=== PATIENT | female | born 1995 | race Caucasian/White ===

== ENCOUNTER → 2019-11-26 | Outpatient (REF) | payer OTHER ==
[2019-11-26 16:38] LABS: BASO # 0.1 10^3/uL (0.0-0.2); BASO % 0.6 % (0.0-1.0); EOS # 0.3 10^3/uL (0.0-0.5); EOS % 2.6 % (0.0-3.0); HEMOGLOBIN 14.2 g/dl (12.0-15.5); LYMPH # 3.9 10^3/uL (1.5-5.0); LYMPH % 30.1 % (24.0-44.0); MEAN CORPUSCULAR HEMOGLOBIN 28.6 pg (27.0-33.0); MEAN CORPUSCULAR HGB CONC 32.3 g/dl (32.0-36.5); MEAN CORPUSCULAR VOLUME 88.7 fl (80.0-96.0); MONO # 0.7 10^3/uL (0.0-0.8); MONO % 5.4 % (0.0-5.0); NEUTROPHILS # 7.8 10^3/uL (1.5-8.5); NEUTROPHILS % 60.3 % (36.0-66.0); PLATELET COUNT, AUTOMATED 398 10^3/uL (150-450); RED BLOOD COUNT 4.96 10^6/uL (4.00-5.40); WHITE BLOOD COUNT 12.9 10^3/uL (4.0-10.0)
[2019-11-26 16:50] LABS: ALT/SGPT 39 U/L (12-78); BILIRUBIN,TOTAL 0.4 MG/DL (0.2-1.0); BLOOD UREA NITROGEN 10 MG/DL (7-18); CALCIUM LEVEL 9.2 MG/DL (8.5-10.1); CARBON DIOXIDE LEVEL 27 MEQ/L (21-32); CHLORIDE LEVEL 105 MEQ/L (98-107); CREATININE FOR GFR 0.65 MG/DL (0.55-1.30); FREE T4 1.03 NG/DL (0.76-1.46); GLOMERULAR FILTRATION RATE > 60.0 (>60); GLUCOSE, FASTING 72 MG/DL (70-100); POTASSIUM SERUM 4.2 MEQ/L (3.5-5.1); SODIUM LEVEL 138 MEQ/L (136-145); TOTAL PROTEIN 7.3 GM/DL (6.4-8.2)
== END ==
LOC: M SFHCLERA 11:40
PROVIDERS: ATTEND Nurse Practitioner Family
DX: R63.5 Abnormal weight gain (principal)

== ENCOUNTER 2020-07-12 09:00 | Emergency (ER) | payer OTHER ==
[~2020-07-12] VITALS: Ht 165.1 cm; Wt 123.6 kg
[2020-07-12] MEDS ORDERED: LIDOCAINE 2% MDV 20ML VIAL SC ONE (09:45)
[2020-07-12 10:20] VITALS: BP 140/77
== END 2020-07-12 10:22 | disposition home or self-care (01) ==
LOC: M ED 09:00
DX: S61.412A Laceration without foreign body of left hand, initial encounter (principal); W31.1XXA Contact with metalworking machines, initial encounter; Y92.89 Other specified places as the place of occurrence of the external cause; Y93.89 Activity, other specified; Y99.0 Civilian activity done for income or pay; Z87.891 Personal history of nicotine dependence

== ENCOUNTER 2020-07-19 13:51 | Emergency (ER) | payer OTHER ==
[~2020-07-19] VITALS: Ht 165.1 cm; Wt 124.9 kg
[2020-07-19] MEDS ORDERED: BACITRACIN OINTMENT 30GM TUBE TOP ONE (14:45)
[2020-07-19] MEDS ORDERED: AUGM875T28 PO (14:58)
[2020-07-19 15:10] VITALS: BP 141/98
== END 2020-07-19 15:30 | disposition home or self-care (01) ==
LOC: M ED 13:51
DX: Z48.02 Encounter for removal of sutures (principal); L08.9 Local infection of the skin and subcutaneous tissue, unspecified

== ENCOUNTER → 2020-11-08 | Outpatient (CLI) | payer OTHER ==
[~2020-11-08] MED LIST: AUGM875T28 PO
--- NOTE | 2020-11-09 08:38 | REP ---
INDICATION: IRREGULAR MENSES COMPARISON: None. TECHNIQUE: Transabdominal pelvic ultrasound with color Doppler evaluation of the ovaries. FINDINGS: Bladder is unremarkable and measures 12.4 x 9.3 x 7.9 cm. Normal anteverted uterus measures 7.7 x 3.9 x 6.0 cm. The endometrial complex measures 8.8 mm thickness. No discrete uterine or endometrial abnormalities are appreciated. Bilateral ovaries are normal in appearance and vascularity without evidence for torsion. Right ovary measures 3.4 x 1.7 x 1.9 cm; R I = 0.67. Left ovary measures 3.9 x 2.1 x 1.9 cm; R I = 0.55. No pelvic fluid or adnexal mass lesion IMPRESSION: Normal pelvic ultrasound. <Electronically signed by Baltazar Cooper > 11/09/20 [id number]
== END ==
LOC: M RAD 12:21
PROVIDERS: ATTEND Nurse Practitioner Family
DX: N92.6 Irregular menstruation, unspecified (principal)

== ENCOUNTER → 2021-01-11 | Outpatient (REF) | payer OTHER ==
[2021-01-11 18:00] LABS: BASO # 0.1 10^3/uL (0.0-0.2); BASO % 0.5 % (0.0-1.0); EOS # 0.5 10^3/uL (0.0-0.5); EOS % 3.3 % (0.0-3.0); HEMATOCRIT 41.9 % (36.0-47.0); HEMOGLOBIN 13.3 g/dl (12.0-15.5); LYMPH % 29.9 % (24.0-44.0); MEAN CORPUSCULAR HEMOGLOBIN 27.7 pg (27.0-33.0); MEAN CORPUSCULAR HGB CONC 31.7 g/dl (32.0-36.5); MEAN CORPUSCULAR VOLUME 87.1 fl (80.0-96.0); MONO # 0.8 10^3/uL (0.0-0.8); MONO % 5.8 % (2.0-8.0); NEUTROPHILS # 8.1 10^3/uL (1.5-8.5); PLATELET COUNT, AUTOMATED 405 10^3/uL (150-450); RED BLOOD COUNT 4.81 10^6/uL (4.00-5.40); WHITE BLOOD COUNT 13.5 10^3/uL (4.0-10.0)
[2021-01-11 18:45] LABS: HCG, SERUM QUALITATIVE NEGATIVE (NEGATIVE)
[2021-01-11 18:46] LABS: ALBUMIN 3.7 GM/DL (3.2-5.2); ALT/SGPT 38 U/L (12-78); BILIRUBIN,TOTAL 0.3 MG/DL (0.2-1.0); BLOOD UREA NITROGEN 14 MG/DL (7-18); CALCIUM LEVEL 9.3 MG/DL (8.5-10.1); CARBON DIOXIDE LEVEL 26 MEQ/L (21-32); CHLORIDE LEVEL 104 MEQ/L (98-107); CREATININE FOR GFR 0.92 MG/DL (0.55-1.30); FOLLICLE STIMULATING HORMONE 7.4 mIU/mL; FREE T4 1.01 NG/DL (0.76-1.46); GLOMERULAR FILTRATION RATE > 60.0 (>60); GLUCOSE, FASTING 74 MG/DL (70-100); POTASSIUM SERUM 4.3 MEQ/L (3.5-5.1); PROLACTIN 8.3 NG/ML; SODIUM LEVEL 138 MEQ/L (136-145); TOTAL PROTEIN 6.9 GM/DL (6.4-8.2)
[2021-01-13 18:11] LABS: TESTOSTERONE FREE (DIRECT) 1.8 pg/mL (0.0-4.2)
[2021-01-14 14:39] LABS: CHLAMYDIA DNA AMPLIFICATION NEGATIVE (NEGATIVE); GC DNA AMPLIFICATION NEGATIVE (NEGATIVE)
== END ==
LOC: M PLALAB 14:58
PROVIDERS: ATTEND Nurse Practitioner Women's Health
DX: N93.9 Abnormal uterine and vaginal bleeding, unspecified (principal); N92.6 Irregular menstruation, unspecified

== ENCOUNTER 2021-07-03 13:23 | Emergency (ER) | payer OTHER ==
[~2021-07-03] VITALS: Ht 165.1 cm; Wt 116.2 kg
[2021-07-03 14:35] LABS: HEMATOCRIT 38.3 % (36.0-47.0); HEMOGLOBIN 12.5 g/dl (12.0-15.5); MEAN CORPUSCULAR HEMOGLOBIN 27.8 pg (27.0-33.0); MEAN CORPUSCULAR HGB CONC 32.6 g/dl (32.0-36.5); MEAN CORPUSCULAR VOLUME 85.3 fl (80.0-96.0); PLATELET COUNT, AUTOMATED 374 10^3/uL (150-450); RED BLOOD COUNT 4.49 10^6/uL (4.00-5.40); WHITE BLOOD COUNT 15.2 10^3/uL (4.0-10.0)
[2021-07-03 15:00] LABS: ATYPICAL LYMPH 2 % (0-5); EOSINOPHILS 1 % (0-3); LYMPHOCYTES 25 % (16-44); MONOCYTES 3 % (0-5); NEUTROPHILS 69 % (28-66); PLATELET ESTIMATE NORMAL (NORMAL)
[2021-07-03] MEDS ORDERED: KETOROLAC 60MG 2ML VIAL IM ONE (16:00)
[2021-07-03] MEDS ORDERED: ONDANSETRON 4 MG ORAL DISINTEGRATING TAB PO ONE (16:00)
--- NOTE | 2021-07-03 16:43 | REP ---
INDICATION: heavy vaginal bleeding, pelvic cramping. COMPARISON: 11/08/2020 TECHNIQUE: Transvesical and transvaginal scanning FINDINGS: The uterus measures 7.9 x 4.1 x 6.3 cm. The parenchymal echo pattern is within normal limits. The endometrial echo complex is unremarkable appearing measuring 3 mm in its greatest thickness. The right ovary measures 2.5 x 2.4 x 1.8 cm and is within normal limits with an RI 0.72. The left ovary measures 1.8 x 2.1 x 1.5 cm and is within normal limits with an RI 0.75. There is no free fluid in the cul-de-sac IMPRESSION: Pelvic ultrasonography is within normal limits. <Electronically signed by Francisco Javier Max > 07/03/21 [id number]
[2021-07-03 17:16] VITALS: BP 117/68
== END 2021-07-03 17:19 | disposition home or self-care (01) ==
LOC: M ED 13:23
DX: N92.0 Excessive and frequent menstruation with regular cycle (principal)
CPT/HCPCS: 36415; 76830; 76856; 84702; 85025; 86850; 86900; 86901; 93976; 96372; 99284; J1885; Q0162

== ENCOUNTER 2022-03-28 11:04 | Emergency (ER) | payer OTHER ==
[~2022-03-28] VITALS: Ht 165.1 cm; Wt 118.1 kg
[2022-03-28] MEDS ORDERED: IPRATROPIUM 0.5MG/ALBUTEROL 2.5MG INH SOL UD 3ML (DUONEB) NEB ONE (11:10)
[2022-03-28 11:38] LABS: VENOUS BASE EXCESS -1.3 (-2.0-2.0); VENOUS HCO3 20.5 MEQ/L (23.0-27.0); VENOUS O2 SATURATION 98.3 % (60.0-80.0); VENOUS PARTIAL PRESSURE CO2 27.4 mmHg (38.0-50.0); VENOUS PARTIAL PRESSURE O2 105.3 mmHg (30.0-50.0); VENOUS PH 7.492 UNITS (7.330-7.430); VENOUS STANDARD HCO3 23.4 MEQ/L; VENOUS TOTAL CO2 21.3 MEQ/L (24.0-28.0)
[2022-03-28] MEDS ORDERED: ALBU8.5H INH (11:43)
[2022-03-28 11:45] LABS: HEMATOCRIT 41.4 % (36.0-47.0); HEMOGLOBIN 13.9 g/dl (12.0-15.5); MEAN CORPUSCULAR HEMOGLOBIN 28.9 pg (27.0-33.0); MEAN CORPUSCULAR HGB CONC 33.6 g/dl (32.0-36.5); MEAN CORPUSCULAR VOLUME 86.1 fl (80.0-96.0); PLATELET COUNT, AUTOMATED 415 10^3/uL (150-450); RED BLOOD COUNT 4.81 10^6/uL (4.00-5.40); WHITE BLOOD COUNT 18.6 10^3/uL (4.0-10.0)
[2022-03-28 12:11] LABS: ATYPICAL LYMPH 2 % (0-5); EOSINOPHILS 9 % (0-3); LYMPHOCYTES 33 % (16-44); MONOCYTES 8 % (0-5); NEUTROPHILS 48 % (28-66); PLATELET ESTIMATE NORMAL (NORMAL)
[2022-03-28 12:13] LABS: ALBUMIN 3.7 GM/DL (3.2-5.2); ALT/SGPT 26 U/L (12-78); BILIRUBIN,DIRECT < 0.1 MG/DL (0.0-0.2); BILIRUBIN,TOTAL 0.3 MG/DL (0.2-1.0); BLOOD UREA NITROGEN 8 MG/DL (7-18); CALCIUM LEVEL 9.7 MG/DL (8.5-10.1); CARBON DIOXIDE LEVEL 18 MEQ/L (21-32); CHLORIDE LEVEL 110 MEQ/L (98-107); GLOMERULAR FILTRATION RATE > 60.0 (>60); GLUCOSE, FASTING 98 MG/DL (70-100); POTASSIUM SERUM 3.7 MEQ/L (3.5-5.1); SODIUM LEVEL 141 MEQ/L (136-145)
[2022-03-28] MEDS ORDERED: NS 1,000 ML IV ONE (12:20)
[2022-03-28 15:15] VITALS: BP 119/61
[2022-03-28] MEDS ORDERED: PRED20TA PO (15:16)
== END 2022-03-28 15:20 | disposition home or self-care (01) ==
LOC: EDBD 11:04 → M ED 11:04
DX: J45.901 Unspecified asthma with (acute) exacerbation (principal); R00.0 Tachycardia, unspecified; Z79.51 Long term (current) use of inhaled steroids

== ENCOUNTER 2022-09-19 16:40 | Emergency (ER) | payer OTHER ==
[~2022-09-19] VITALS: Ht 165.1 cm; Wt 122.7 kg
[~2022-09-19 16:40] MED LIST changes: +ALBU8.5H INH; +PRED20TA PO
[2022-09-19 18:25] LABS: APPEARANCE, URINE MANUAL CLOUDY (CLEAR); BASO # 0.1 10^3/uL (0.0-0.2); BASO % 0.4 % (0.0-1.0); COLOR, URINE MANUAL AMBER (YELLOW); EOS # 0.5 10^3/uL (0.0-0.5); EOS % 3.3 % (0.0-3.0); HEMOGLOBIN 12.7 g/dl (12.0-15.5); LYMPH # 4.4 10^3/uL (1.5-5.0); LYMPH % 31.6 % (24.0-44.0); MEAN CORPUSCULAR HEMOGLOBIN 28.3 pg (27.0-33.0); MEAN CORPUSCULAR HGB CONC 31.8 g/dl (32.0-36.5); MEAN CORPUSCULAR VOLUME 89.3 fl (80.0-96.0); MONO % 7.3 % (2.0-8.0); NEUTROPHILS # 7.9 10^3/uL (1.5-8.5); NEUTROPHILS % 56.7 % (36.0-66.0); PH,URINE MAN 5.5 UNITS (5.0 - 7.0); PLATELET COUNT, AUTOMATED 373 10^3/uL (150-450); RED BLOOD COUNT 4.48 10^6/uL (4.00-5.40)
[2022-09-19 18:26] LABS: BILIRUBIN, URINE MANUAL NEGATIVE (NEGATIVE); BLOOD URINE MANUAL POSITIVE (NEGATIVE); GLUCOSE, URINE (UA) MANUAL NEGATIVE (NEGATIVE); KETONE, URINE MANUAL NEGATIVE (NEGATIVE); LEUKOCYTE ESTERASE, URINE MAN TRACE (NEGATIVE); NITRITE, URINE MANUAL NEGATIVE (NEGATIVE); PROTEIN, URINE MANUAL 1+ mg/dL (NEGATIVE); UROBILINOGEN, URINE MANUAL NORMAL (NORMAL)
[2022-09-19 18:41] LABS: BACTERIA, URINE SMALL AMOUNT; RBC, URINE TNTC /hpf (0-3); SQUAMOUS EPITHELIAL CELL URINE SMALL AMOUNT /hpf (SMALL AMT)
[2022-09-19 18:42] LABS: HYALINE CAST, URINE NONE SEEN /lpf (0-1)
[2022-09-19 18:53] LABS: BLOOD UREA NITROGEN 11 MG/DL (9-23); CALCIUM LEVEL 9.3 MG/DL (8.5-10.1); CARBON DIOXIDE LEVEL 28 MMOL/L (20-31); CHLORIDE LEVEL 105 MMOL/L (98-107); CREATININE FOR GFR 0.72 MG/DL (0.55-1.30); GLOMERULAR FILTRATION RATE > 60.0 (>60); GLUCOSE, FASTING 75 MG/DL (60-100); POTASSIUM SERUM 4.2 MMOL/L (3.5-5.1); SODIUM LEVEL 139 MMOL/L (136-145)
[2022-09-19 19:59] VITALS: BP 126/78
== END 2022-09-19 20:14 | disposition home or self-care (01) ==
LOC: M ED 16:40
DX: N93.8 Other specified abnormal uterine and vaginal bleeding (principal); J30.2 Other seasonal allergic rhinitis

== ENCOUNTER → 2022-09-20 | Outpatient (CLI) | payer OTHER | LOC: M WHC 11:18 | PROVIDERS: ATTEND Physician Assistant Medical | DX: N92.6 Irregular menstruation, unspecified (principal) ==

== ENCOUNTER → 2022-10-16 | Outpatient (REF) | payer OTHER ==
[2022-10-16 17:33] LABS: GC DNA AMPLIFICATION NEGATIVE (NEGATIVE)
== END ==
LOC: M SFHCWAGY 13:22
PROVIDERS: ATTEND Obstetrics & Gynecology
DX: Z11.3 Encounter for screening for infections with a predominantly sexual mode of transmission (principal); Z12.4 Encounter for screening for malignant neoplasm of cervix; Z01.419 Encounter for gynecological examination (general) (routine) without abnormal findings; Z77.9 Other contact with and (suspected) exposures hazardous to health

== ENCOUNTER 2023-01-16 16:59 | Emergency (ER) | payer OTHER ==
[~2023-01-16] VITALS: Ht 165.1 cm; Wt 126.8 kg
[2023-01-16] MEDS ORDERED: ONDANSETRON 4MG 2ML VIAL IV ONE (18:40)
[2023-01-16] MEDS ORDERED: MORPHINE 4 MG/ML 1ML VIAL IV ONE ×2 (18:40→21:20)
[2023-01-16 19:03] LABS: BASO # 0.1 10^3/uL (0.0-0.2); BASO % 0.4 % (0.0-1.0); EOS # 0.2 10^3/uL (0.0-0.5); EOS % 0.8 % (0.0-3.0); HEMATOCRIT 40.7 % (36.0-47.0); HEMOGLOBIN 13.2 g/dl (12.0-15.5); LYMPH # 4.4 10^3/uL (1.5-5.0); MEAN CORPUSCULAR HEMOGLOBIN 28.8 pg (27.0-33.0); MEAN CORPUSCULAR HGB CONC 32.4 g/dl (32.0-36.5); MEAN CORPUSCULAR VOLUME 88.9 fl (80.0-96.0); MONO # 1.1 10^3/uL (0.0-0.8); NEUTROPHILS # 16.1 10^3/uL (1.5-8.5); NEUTROPHILS % 72.8 % (36.0-66.0); PLATELET COUNT, AUTOMATED 403 10^3/uL (150-450); RED BLOOD COUNT 4.58 10^6/uL (4.00-5.40)
[2023-01-16 19:18] LABS: INR 1.01; PROTHROMBIN TIME 13.5 SECONDS (12.5-14.5)
[2023-01-16 19:19] LABS: PARTIAL THROMBOPLASTIN TIME 22.4 SECONDS (24.8-34.2)
[2023-01-16] MEDS ORDERED: ISOVUE-370 76% 100ML VIAL As Ordered ONE (19:26)
[2023-01-16 19:35] LABS: LIPASE 26 U/L (12-53)
[2023-01-16 19:37] LABS: ALBUMIN 3.8 G/DL (3.2-5.2); ALKALINE PHOSPHATASE 68 U/L (46-116); ALT/SGPT 57 U/L (7.0-40); AST/SGOT 37 U/L (<34); BILIRUBIN,DIRECT < 0.1 MG/DL (<0.4); BILIRUBIN,TOTAL 0.3 MG/DL (0.3-1.2)
[2023-01-16] MEDS ORDERED: PERC5TAB12 PO (21:21)
[2023-01-16 21:49] VITALS: BP 117/82
== END 2023-01-16 22:00 | disposition home or self-care (01) ==
LOC: M ED 16:59
DX: S20.20XA Contusion of thorax, unspecified, initial encounter (principal); W13.3XXA Fall through floor, initial encounter; Y92.89 Other specified places as the place of occurrence of the external cause; Y93.89 Activity, other specified; Y99.0 Civilian activity done for income or pay; F17.200 Nicotine dependence, unspecified, uncomplicated
CPT/HCPCS: 71101; 71260; 72128; 72131; 74177; 80047; 80076; 81001; 83690; 84702; 85025; 85610; 85730; 96374; 96375; 96376; 99284; J2405; Q9967

== ENCOUNTER → 2023-03-26 | Outpatient (CLI) | payer OTHER ==
[~2023-03-26] MED LIST changes: +PERC5TAB12 PO
[2023-03-26 17:26] LABS: BASO # 0.1 10^3/uL (0.0-0.2); BASO % 0.6 % (0.0-1.0); EOS # 1.1 10^3/uL (0.0-0.5); EOS % 8.9 % (0.0-3.0); HEMATOCRIT 41.2 % (36.0-47.0); HEMOGLOBIN 12.7 g/dl (12.0-15.5); LYMPH # 3.6 10^3/uL (1.5-5.0); LYMPH % 29.8 % (24.0-44.0); MEAN CORPUSCULAR HEMOGLOBIN 28.3 pg (27.0-33.0); MEAN CORPUSCULAR HGB CONC 30.8 g/dl (32.0-36.5); MEAN CORPUSCULAR VOLUME 91.8 fl (80.0-96.0); MONO # 0.8 10^3/uL (0.0-0.8); MONO % 6.6 % (2.0-8.0); NEUTROPHILS # 6.4 10^3/uL (1.5-8.5); NEUTROPHILS % 53.1 % (36.0-66.0); PLATELET COUNT, AUTOMATED 340 10^3/uL (150-450); RED BLOOD COUNT 4.49 10^6/uL (4.00-5.40); WHITE BLOOD COUNT 12.1 10^3/uL (4.0-10.0)
[2023-03-26 18:00] LABS: ALBUMIN 3.5 G/DL (3.2-5.2); ALKALINE PHOSPHATASE 62 U/L (46-116); ALT/SGPT 76 U/L (7.0-40); AST/SGOT 41 U/L (<34); BILIRUBIN,TOTAL 0.3 MG/DL (0.3-1.2); BLOOD UREA NITROGEN 10 MG/DL (9-23); CALCIUM LEVEL 8.7 MG/DL (8.5-10.1); CARBON DIOXIDE LEVEL 25 MMOL/L (20-31); CHLORIDE LEVEL 108 MMOL/L (98-107); CHOLESTEROL LEVEL 160 MG/DL (<200); CHOLESTEROL RISK RATIO 3.73 (<5); GLOMERULAR FILTRATION RATE > 60.0 (>60); GLUCOSE, FASTING 77 MG/DL (60-100); HDL CHOLESTEROL 42.8 MG/DL (>40); NON-HDL-C 117.2 MG/DL; POTASSIUM SERUM 4.3 MMOL/L (3.5-5.1); SODIUM LEVEL 140 MMOL/L (136-145); TOTAL PROTEIN 6.2 G/DL (5.7-8.2); TRIGLYCERIDES LEVEL 166 MG/DL (<150)
[2023-03-26 18:03] LABS: THYROID STIMULATING HORMONE 3.086 uIU/ML (0.55-4.78); TOTAL 25(OH) VITAMIN D 20.8 NG/ML (20.0-100.0)
[2023-03-26 18:04] LABS: FOLATE 13.38 NG/ML (>5.4)
[2023-03-26 18:06] LABS: FOLLICLE STIMULATING HORMONE 5.8 mIU/ML; LUTEINIZING HORMONE 6.6 mIU/ML
[2023-03-26 18:07] LABS: ESTRADIOL 51.8 PG/ML; PROLACTIN 4.95 NG/ML
[2023-03-26 18:08] LABS: FREE T4 0.99 NG/DL (0.89-1.76)
[2023-03-26 18:09] LABS: VITAMIN B12 LEVEL 396 PG/ML (211-911)
[2023-03-26 20:46] LABS: HCG, SERUM QUALITATIVE NEGATIVE (NEGATIVE)
[2023-03-31 21:10] LABS: 17 HYDROXY PROGESTERONE 31 ng/dL (.); HOMOCYST(E)INE SERUM 4.4 umol/L (0.0-14.5); Methylmalonic Acid 363 nmol/L (0-378)
== END ==
LOC: M WUC 11:42
PROVIDERS: ATTEND Physician Assistant
DX: E66.01 Morbid (severe) obesity due to excess calories (principal); Z68.42 Body mass index [BMI] 45.0-49.9, adult; R63.5 Abnormal weight gain; N93.9 Abnormal uterine and vaginal bleeding, unspecified